=== PATIENT | male | born 1995 | race American Indian/Alaskan Native ===

== ENCOUNTER 2019-01-12 10:50 | Emergency (ER) | payer OTHER ==
[2019-01-12 11:47] VITALS: BP 121/71
--- NOTE | 2019-01-12 11:47 | Emergency Department Report ---
Blank Doc - Documentation Documentation: This is a 23-year-old male that presents with right ankle/foot pain. Stated i njured last night by falling into a barron. Denies any other injuries or complaints. This initial assessment diagnostic orders/clinical plan/treatment(s) is/are subject to change based on patient's health status, clinical progression and re- assessment by fellow clinical providers in the ED. Further treatment and workup at subsequent clinical providers discretion. Patient/guardians urged not to e [place] from ED s their condition may be serious if not clinically assessed and managed. Initial orders include: 1-Patient sent to [facility] for further evaluation and treatment 2- xray
[2019-01-12] MEDS ORDERED: IBUPROFEN PO ONE (13:27)
--- NOTE | 2019-01-12 13:27 | Emergency Department Report ---
ED Lower Extremity HPI - General Chief Complaint: Extremity Injury, Lower Stated Complaint: RT ANKLE/HEEL PAIN Time Seen by Provider: 01/12/19 11:46 Source: patient Mode of arrival: Ambulatory Limitations: No Limitations - History of Present Illness Initial Comments: Patient is a 23-year-old -[place] male comes to the ER today after rolling his ankle yesterday. He stepped into a hole and rotating his foot outward. He states he went to bed and thought he could sleep it off but woke up this morning and his right ankle specifically his heel area is hurting. He is neurovascularly intact. Ambulatory. There is no swelling on exam. DP bilaterally +2. pmh none rx none - Related Data Previous Rx's Medication Instructions Recorded Last Taken Type Naproxen [Naprosyn] 500 mg PO BID PRN #20 tablet 01/12/19 Unknown Rx Allergies Allergy/AdvReac Type Severity Reaction Status Date / Time LAO PLUMS Allergy Itching Uncoded 01/12/19 11:10 ED Review of Systems ROS: Stated complaint: RT ANKLE/HEEL PAIN Other details as noted in HPI Comment: All other systems reviewed and negative Constitutional: denies: chills Eyes: denies: as per HPI ENT: denies: ear pain Respiratory: denies: see HPI Cardiovascular: denies: palpitations Endocrine: denies: flushing Genitourinary: denies: dysuria Musculoskeletal: as per HPI. denies: back pain, joint swelling, arthralgia Skin: denies: lesions Neurological: denies: weakness Psychiatric: denies: depression Hematological/Lymphatic: denies: as per HPI ED Past Medical Hx - Past Medical History Previous Medical History?: No - Surgical History Past Surgical History?: No - Social History Smoking Status: Never Smoker Substance Use Type: None - Medications Home Medications: Home Medications Medication Instructions Recorded Confirmed Last Taken Type Naproxen [Naprosyn] 500 mg PO BID PRN #20 tablet 01/12/19 Unknown Rx ED Physical Exam - General Limitations: No Limitations General appearance: alert - Head Head exam: Present: atraumatic - Eye Eye exam: Present: normal appearance Pupils: Present: normal accommodation - ENT ENT exam: Present: normal exam - Neck Neck exam: Present: normal inspection - Respiratory Respiratory exam: Present: normal lung sounds bilaterally - Cardiovascular Cardiovascular Exam: Present: regular rate - GI/Abdominal GI/Abdominal exam: Present: soft, normal bowel sounds - Rectal Rectal exam: Present: deferred - Extremities Exam Extremities exam: Present: normal inspection, full ROM - Expanded Lower Extremity Exam Right Lower Leg exam: Present: normal inspection Ankle exam: Present: normal inspection, full ROM. Absent: tenderness, swelling, abrasion, laceration Foot/Toe exam: Present: normal inspection - Back Exam Back exam: Present: normal inspection, full ROM - Neurological Exam Neurological exam: Present: alert, oriented X3 - Psychiatric Psychiatric exam: Present: normal affect, normal mood - Skin Skin exam: Present: warm, dry, intact ED Course Vital Signs 01/12/19 01/12/19 01/12/19 11:46 13:59 14:00 Temperature 99.1 F Pulse Rate 64 Respiratory 16 18 18 Rate Blood Pressure 121/71 O2 Sat by Pulse 99 Oximetry ED Lower Extremity MDM - Radiology Data Radiology results: report reviewed, image reviewed nap - Medical Decision Making xray noted medicated for pain dc home w dc poc - Differential Diagnosis ro fx Critical care attestation.: If time is entered above; I have spent that time in minutes in the direct care of this critically ill patient, excluding procedure time. ED Disposition Clinical Impression: Foot sprain Disposition: DC-01 TO HOME OR SELFCARE Is pt being admited?: No Does the pt Need Aspirin: No Condition: Stable Instructions: Foot Sprain (ED) Additional Instructions: ice rest elevate med as ordered today for pain follow up ortho if persists Prescriptions: Naproxen [Naprosyn] 500 mg PO BID PRN #20 tablet PRN Reason: Pain Referrals: LUISA MAZA [Primary Care Provider] - 3-5 Days GIANFRANCO WILLIAMSON MD [Staff Physician] - 3-5 Days Time of Disposition: 14:06
[2019-01-12] MEDS ORDERED: TORADOL IM ONE (13:28)
--- NOTE | 2019-01-12 14:02 | XRay Report ---
RIGHT FOOT, 3 views: History: Right foot pain. The bony architecture is intact. Bony alignment is normal. No soft tissue abnormalities are seen. The joint spaces appear preserved. IMPRESSION: Right foot within normal limits.
--- NOTE | 2019-01-12 14:02 | XRay Report ---
RIGHT ANKLE, 3 views: History: right ankle pain. Bone mineralization is normal. No acute osseous abnormality or joint pathology is identified. The soft tissues are unremarkable. IMPRESSION: Normal study.
== END 2019-01-12 14:21 | disposition home or self-care (01) ==
LOC: ED 10:50
DX: S93.601A Unspecified sprain of right foot, initial encounter (principal); X50.9XXA Other and unspecified overexertion or strenuous movements or postures, initial encounter; Y93.89 Activity, other specified; Y92.89 Other specified places as the place of occurrence of the external cause; Y99.8 Other external cause status
CPT/HCPCS: 73610; 73630; 96372; 99283; J1885